=== PATIENT | female | born 1965 | race Native Hawaiian/Other Pacific Islander ===

== ENCOUNTER 2023-01-01 15:15 | Outpatient (CLI) | payer OTHER ==
--- NOTE | 2023-01-01 18:51 | XRAY Report ---
PROCEDURE: Thoracic Spine 2 View INDICATIONS: MUSCLE SPASM OF THORACIC BACK TECHNIQUE: 2 view(s) of the thoracic spine were acquired. COMPARISON: None FINDINGS: Bones: Vertebral body height and alignment maintained. No lytic or blastic intrinsic lesions. Soft tissues: Paravertebral soft tissues are unremarkable IMPRESSION: Unremarkable thoracic spine radiographs Reviewed by: Fredo Alcantara MD on 01/01/2023 5:50 PM [facility] Approved by: Fredo Alcantara MD on 01/01/2023 5:50 PM AKDT Station ID: [id number]
== END 2023-01-01 15:16 | disposition home or self-care (01) ==
LOC: DI 15:15
PROVIDERS: ATTEND Family Medicine
DX: M62.830 Muscle spasm of back (principal)